=== PATIENT | female | born 1980 | race Caucasian/White ===

== ENCOUNTER 2020-04-18 11:47 | Emergency (ER) | payer MEDICARE ==
--- NOTE | 2020-04-18 12:11 | ERPHSYRPT ---
- History of Present Illness Time Seen by Provider: 04/18/20 12:10 Source: patient Exam Limitations: no limitations Physician History: This is a 39-year-old white female who is obese has a history of hypertension asthma and epilepsy. She does not recall the names of the medication she is taking but presents with a 2 to 3-day history of low back pain after a fall she sustained. Additionally, she complains of dental infection in the right lower molar and redness and swelling in her upper thigh where she injected methamphetamines. 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 Patient states that she is allergic to penicillin but can take cephalexin without any issues. Patient denies wanting any pain medicine for her back. She states she will use a patch from [id number]. Timing/Duration: day(s) (A few) Method of Injury: fall Quality: aching Back Pain Location: lumbar spine Severity of Pain-Max: mild Severity of Pain-Current: mild Associated Symptoms: lower back pain, muscle spasms, No fever, No chills, No nausea, No vomiting, No numbness in legs/feet, No weakness, No sensory/motor loss, No tingling in legs/feet Previous symptoms: no prior history Allergies/Adverse Reactions: Penicillins Allergy (Verified 04/18/20 12:16) Anaphylactic Reaction Travel Risk - International Travel Have you traveled outside of the country in past 3 weeks: No - Coronavirus Screening Are you exhibiting any of the following symptoms?: No Close contact with a COVID-19 positive Pt in past 14-21 Days: No - Review of Systems Constitutional: No Symptoms Eyes: No Symptoms Ears, Nose, & Throat: No Symptoms Respiratory: No Symptoms Cardiac: No Symptoms Abdominal/Gastrointestinal: No Symptoms Genitourinary Symptoms: No Symptoms Musculoskeletal: Back Pain Skin: No Symptoms Neurological: No Symptoms Psychological: No Symptoms Endocrine: No Symptoms Hematologic/Lymphatic: No Symptoms Immunological/Allergic: No Symptoms All Other Systems: Reviewed and Negative - Past Medical History Pertinent Past Medical History: Yes Neurological History: Seizures ENT History: No Pertinent History Cardiac History: Hypertension Respiratory History: No Pertinent History Endocrine Medical History: Diabetes Type I Musculoskeletal History: No Pertinent History GI Medical History: No Pertinent History History: No Pertinent History Psycho-Social History: No Pertinent History Female Reproductive Disorders: No Pertinent History - Past Surgical History Past Surgical History: Yes Neuro Surgical History: No Pertinent History Cardiac: No Pertinent History Respiratory: No Pertinent History Genitourinary: No Pertinent History Musculoskeletal: No Pertinent History - Nursing Vital Signs Nursing Vital Signs: Initial Vital Signs Temperature 98.7 F 04/18/20 12:07 Pulse Rate 98 H 04/18/20 12:07 Respiratory Rate 17 04/18/20 12:07 Blood Pressure 152/96 04/18/20 12:07 O2 Sat by Pulse Oximetry 99 04/18/20 12:07 Pain Scale Pain Intensity 8 - Physical Exam General Appearance: mild distress, alert, anxiety, obese Eye Exam: PERRL/EOMI Ears, Nose, Throat Exam: moist mucous membranes, other (Poor dentition) Neck Exam: normal inspection, non-tender, supple, full range of motion Respiratory Exam: normal breath sounds, chest tenderness, lungs clear, airway intact, No respiratory distress Cardiovascular Exam: regular rate/rhythm, normal heart sounds, normal peripheral pulses Gastrointestinal Exam: soft, normal bowel sounds, No tenderness Pelvic Exam: not done Rectal Exam: not done Back Exam: normal inspection, normal range of motion, No CVA tenderness, No vertebral tenderness Extremity Exam: normal inspection, normal range of motion, pelvis stable Neurologic Exam: alert, oriented x 3, cooperative, 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 No abscess present.) Lymphatic Exam: No adenopathy SpO2 Interpretation: normal O2 Delivery: Room Air Ordered Tests: Active Orders 24 hr Category Date Time Status LUMBAR LIMITED (2 OR 3 VIEWS) Stat Exams 04/18/20 12:27 Completed - Progress Progress: unchanged Progress Note: 04/18/20 13:09 Lumbar x-rays reveals no evidence of acute fracture or subluxation. Counseled pt/family regarding: diagnosis, need for follow-up, rad results - Departure Departure Disposition: Home Clinical Impression: Cellulitis, Dental infection Condition: Stable Critical Care Time: No Additional Instructions: Drink plenty of fluids. Take your medication as prescribed. Follow-up with your primary care physician for further management of your back pain and cellulitis. Follow-up with a dentist for further management of your dental infection. Take Tylenol and ibuprofen for your pain control Prescriptions: Cephalexin Mh 500 mg [Keflex 500 mg] 500 mg PO TID #21 capsule
--- NOTE | 2020-04-18 13:05 | XRAY ---
Indication: Pain following fall. Comparison: None 3 view lumbar spine demonstrates 6 lumbar segments in normal alignment with minimal/mild multilevel thoracolumbar endplate spurring, mild L1-L3/L6-L1 disc space narrowing, and cholecystectomy clips. No other bony, articular, or soft tissue abnormalities.
[2020-04-18 13:13] VITALS: BP 146/90; PULSE 88; O2SAT 98
== END 2020-04-18 13:21 | disposition home or self-care (01) ==
LOC: ED 11:47
DX: K12.2 Cellulitis and abscess of mouth (principal); K04.7 Periapical abscess without sinus
CPT/HCPCS: 72100; 99283

== ENCOUNTER 2020-05-16 17:56 | Emergency (ER) | payer MEDICARE ==
[2020-05-16] MEDS ORDERED: Hydromorphone 1 mg/ml Ampule IM ONE (18:43)
[2020-05-16] MEDS ORDERED: Hydromorphone 1 mg/ml Ampule ONE (19:04)
[2020-05-16 19:43] VITALS: O2SAT 99
--- NOTE | 2020-05-16 20:28 | ERPHSYRPT ---
- History of Present Illness Time Seen by Provider: 05/16/20 18:20 Source: patient Exam Limitations: no limitations Patient Subjective Stated Complaint: Pt states "I fell out of a truck 4 weeks ago and this pain started about a week ago. It starts in my right butt cheek a nd goes down to my foot." Triage Nursing Assessment: Pt presented alert and oriented X 3, skin pwd Pt ambulates with a limp holding her right buttuck. Pt in no apaprent respiratory distress. Physician History: Is a 39-year-old female who looks more than her stated age by decades presents with pain in the lower back going down the right leg she has a history of chronic back problems and according to inspect was at 1 time 1 extended periods of gabapentin and other opiates etc. However there is been on for almost a year her last prescription being in July 2019. Weeks ago she reports that she fell out of a truck window she had little difficulty at that time but this started 1 week ago. Timing/Duration: week(s) (1) Method of Injury: unknown Quality: sharp Back Pain Location: lumbar spine Back Pain Radiation: buttocks (Right), lower legs (Right) Severity of Pain-Max: severe Severity of Pain-Current: mild Modifying Factors: Improves With: nothing Associated Symptoms: lower back pain Previous symptoms: same symptoms as today Allergies/Adverse Reactions: Penicillins Allergy (Verified 04/18/20 12:16) Anaphylactic Reaction aspertane Allergy (Severe, Uncoded 05/16/20 18:23) Swelling Home Medications: Lisinopril 40 mg PO DAILY 05/16/20 [History] Tizanidine HCl [Zanaflex] 4 mg PO BID 05/16/20 [History] Hx Tetanus, Diphtheria Vaccination/Date Given: Yes Hx Influenza Vaccination/Date Given: No Hx Pneumococcal Vaccination/Date Given: Yes Immunizations Up to Date: Yes Travel Risk - International Travel Have you traveled outside of the country in past 3 weeks: No - Coronavirus Screening Are you exhibiting any of the following symptoms?: No Close contact with a COVID-19 positive Pt in past 14-21 Days: No - Review of Systems Constitutional: No Fever, No Chills Eyes: No Symptoms Ears, Nose, & Throat: No Symptoms Respiratory: No Cough, No Dyspnea Cardiac: No Chest Pain, No Edema, No Syncope Abdominal/Gastrointestinal: No Abdominal Pain, No Nausea, No Vomiting, No Diarrhea Genitourinary Symptoms: No Dysuria Musculoskeletal: Back Pain, No Neck Pain Skin: No Rash Neurological: No Dizziness, No Focal Weakness, No Sensory Changes Psychological: No Symptoms Endocrine: No Symptoms All Other Systems: Reviewed and Negative - Past Medical History Pertinent Past Medical History: Yes Neurological History: Seizures ENT History: No Pertinent History Cardiac History: Hypertension Respiratory History: No Pertinent History Endocrine Medical History: Diabetes Type I Musculoskeletal History: No Pertinent History GI Medical History: No Pertinent History History: No Pertinent History Psycho-Social History: No Pertinent History Female Reproductive Disorders: No Pertinent History - Past Surgical History Past Surgical History: Yes Neuro Surgical History: No Pertinent History Cardiac: No Pertinent History Respiratory: No Pertinent History Gastrointestinal: Other Genitourinary: No Pertinent History Musculoskeletal: No Pertinent History Female Surgical History: Section Other Surgical History: gastric bypass - Social History Smoking Status: Current every day smoker How long have you smoked: years Exposure to second hand smoke: Yes Drug Use: methamphetamines Patient Lives Alone: No - Female History Hx Last Menstrual Period: 04/21/2020 Hx Now: (unknown) - Nursing Vital Signs Nursing Vital Signs: Initial Vital Signs Temperature 99.0 F 05/16/20 18:15 Pulse Rate 78 05/16/20 18:15 Respiratory Rate 24 05/16/20 18:15 Blood Pressure 158/90 05/16/20 18:15 O2 Sat by Pulse Oximetry 100 05/16/20 18:15 Pain Scale Pain Intensity [Right 10 Generalized] Pain Intensity 5 - Physical Exam General Appearance: moderate distress, alert Eye Exam: PERRL/EOMI, eyes nml inspection Neck Exam: normal inspection, non-tender, supple, full range of motion, No meningismus, No midline tenderness Respiratory Exam: normal breath sounds, lungs clear, No respiratory distress Cardiovascular Exam: regular rate/rhythm, normal heart sounds Gastrointestinal Exam: soft, No tenderness, No mass Back Exam: vertebral tenderness, decreased range of motion, other (Right leg raising positive on right) Extremity Exam: normal inspection, normal range of motion, No calf tenderness, No pedal edema Neurologic Exam: alert, oriented x 3, cooperative, 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 nml as tested, normal mood/affect, nml station & gait, sensation nml, No motor deficits Skin Exam: normal color, warm, dry, No rash SpO2 Interpretation: normal SpO2: 99 O2 Delivery: Room Air - Course Nursing assessment & vital signs reviewed: Yes - CT Exams Lumbar Spine CT Interpretation: Other (CT of the lumbar spine shows stable chronic multilevel degenerative disease disease compared to March no acute findings) Ordered Tests: Active Orders 24 hr Category Date Time Status LUMBAR SPINE W/O [CT] Stat Exams 05/16/20 18:43 Taken Medication Summary Discontinued Medications Generic Name Dose Route Start Last Admin Trade Name Freq PRN Reason Stop Dose Admin Hydromorphone HCl 1 mg 05/16/20 18:43 05/16/20 19:05 Hydromorphone 1 Mg/Ml Ampule IM 05/16/20 18:44 1 mg STAT ONE Administration Hydromorphone HCl Confirm 05/16/20 19:04 Hydromorphone 1 Mg/Ml Ampule Administered 05/16/20 19:05 Dose 1 mg .ROUTE .STK-MED ONE - Progress Progress: unchanged - Departure Departure Disposition: Home Clinical Impression: Sciatica associated with disorder of lumbar spine Condition: Stable Critical Care Time: No Referrals: DOCTOR,NO FAMILY [Primary Care Provider] - Instructions: Chronic Pain (DC) Prescriptions: Hydrocodone/APAP 5-325 Tab^^^ [[place] 5-325 Tablet^^^] 1 tab PO Q6HPRN PRN #10 tablet MDD 6 PRN Reason: Pain Gabapentin 300 mg PO BID 10 Days #20 capsule
[2020-05-16 20:48] VITALS: BP 135/82; PULSE 66
--- NOTE | 2020-05-17 08:42 | XRAY ---
Indication: Low back pain radiating right leg 1 week. Status post fall 4 weeks ago. Multiple contiguous axial images obtained through the lumbar spine. Sagittal and coronal reformatted images obtained. Comparison: Lumbar radiograph April 18, 2020. Axial images negative for acute fracture, suspicious bony lesions, or spinal canal stenosis. There remains mild multilevel degenerative disc disease including endplate spurring and thickened disc phenomena. Facets are symmetric again with mild degenerative facet arthropathy at the lumbosacral junction. Sagittal and coronal reformatted images demonstrates normal lumbar alignment with minimal multilevel disc space narrowing. No acute compression fracture or subluxation. Visualized noncontrasted soft tissues again demonstrates cholecystectomy and gastric bypass surgery. Incidental nonobstructing punctate left renal calculus. Impression: 1. Continued negative for acute fracture/subluxation. 2. Stable multilevel degenerative changes.
== END 2020-05-16 20:48 | disposition home or self-care (01) ==
LOC: ED 17:56
DX: M54.30 Sciatica, unspecified side (principal); M53.86 Other specified dorsopathies, lumbar region
CPT/HCPCS: 72131; 96372; 99284; J1170

== ENCOUNTER 2020-07-27 11:21 | Emergency (ER) | payer MEDICARE ==
[2020-07-27 11:32] VITALS: PULSE 64; O2SAT 100
[2020-07-27] MEDS ORDERED: TORAdol 30 mg Injection IM ONE (11:41)
[2020-07-27] MEDS ORDERED: TORAdol 30 mg Injection ONE (11:43)
--- NOTE | 2020-07-27 12:10 | XRAY ---
Indication: Pain following fall. Comparison: None AP pelvis and 2 view right hip demonstrates left midabdomen suture material. No other bony, articular, or soft tissue abnormalities.
--- NOTE | 2020-07-27 12:12 | ERPHSYRPT ---
- History of Present Illness Time Seen by Provider: 07/27/20 11:28 Historian: patient Patient Subjective Stated Complaint: Pt states "I fell on my butt four days ago and yesterday my right leg started to hurt from my butt cheek down to my right foot." Triage Nursing Assessment: Pt presented alert and oriented X 3, skin pwd PT ambulates with a limp. Pt able to speak in clear full sentences pt CSM X 4 Physician History: Pt states "I fell on my butt four days ago and yesterday my right leg started to hurt from my butt cheek down to my right foot." Timing/Duration: day(s) (4) Activities at Onset: activity (Walking) Quality: sharpness Abdominal Pain Onset Location: other (Right Post Hip and RLE) Pain Radiation: other (RLE) Severity of Pain-Max: severe Severity of Pain-Current: severe Modifying Factors: Improves With: lying down, movement, position Associated Symptoms: No back, No chest pain, No diaphoresis, No diarrhea, No fever/chills, No fatigue Previous symptoms: same symptoms as today Allergies/Adverse Reactions: Penicillins Allergy (Verified 04/18/20 12:16) Anaphylactic Reaction aspertane Allergy (Severe, Uncoded 05/16/20 18:23) Swelling Home Medications: Lisinopril 40 mg PO DAILY 05/16/20 [History] Hx Tetanus, Diphtheria Vaccination/Date Given: Yes Hx Influenza Vaccination/Date Given: Yes Hx Pneumococcal Vaccination/Date Given: Yes Immunizations Up to Date: Yes Travel Risk - International Travel Have you traveled outside of the country in past 3 weeks: No - Coronavirus Screening Are you exhibiting any of the following symptoms?: No Close contact with a COVID-19 positive Pt in past 14-21 Days: No - Review of Systems Constitutional: No Fever, No Chills Eyes: No Symptoms Ears, Nose, & Throat: No Symptoms Respiratory: No Cough, No Dyspnea Cardiac: No Chest Pain, No Edema, No Syncope Abdominal/Gastrointestinal: No Abdominal Pain, No Nausea, No Vomiting, No Diarrhea Genitourinary Symptoms: No Dysuria Musculoskeletal: Other (Right hip pain right lower extremity: Pain, painful range of motion), No Back Pain, No Neck Pain Skin: No Rash Neurological: No Dizziness, No Focal Weakness, No Sensory Changes Psychological: No Symptoms Endocrine: No Symptoms All Other Systems: Reviewed and Negative - Past Medical History Pertinent Past Medical History: Yes Neurological History: Seizures ENT History: No Pertinent History Cardiac History: Hypertension Respiratory History: No Pertinent History Endocrine Medical History: Diabetes Type I Musculoskeletal History: No Pertinent History GI Medical History: No Pertinent History History: No Pertinent History Psycho-Social History: No Pertinent History Female Reproductive Disorders: No Pertinent History - Past Surgical History Past Surgical History: Yes Neuro Surgical History: No Pertinent History Cardiac: No Pertinent History Respiratory: No Pertinent History Gastrointestinal: Other Genitourinary: No Pertinent History Musculoskeletal: No Pertinent History Female Surgical History: Section Other Surgical History: gastric bypass - Social History Smoking Status: Current every day smoker How long have you smoked: years Exposure to second hand smoke: Yes Drug Use: methamphetamines Patient Lives Alone: No - Female History Hx Last Menstrual Period: 07/17/2020 Hx Now: No - Nursing Vital Signs Nursing Vital Signs: Initial Vital Signs Temperature 98.1 F 07/27/20 11:26 Pulse Rate 64 07/27/20 11:26 Respiratory Rate 20 07/27/20 11:26 Blood Pressure 124/66 07/27/20 11:26 O2 Sat by Pulse Oximetry 100 07/27/20 11:26 Pain Scale Pain Intensity 10 - Physical Exam General Appearance: no apparent distress, alert, other (Examined in presence of female cna) Eye Exam: PERRL/EOMI, eyes nml inspection Ears, Nose, Throat Exam: normal ENT inspection, pharynx normal, moist mucous membranes Neck Exam: normal inspection, non-tender, supple, full range of motion Respiratory Exam: normal breath sounds, lungs clear, No respiratory distress Cardiovascular Exam: regular rate/rhythm, normal heart sounds Gastrointestinal/Abdomen Exam: soft, No tenderness, No mass Back Exam: normal inspection, normal range of motion, No CVA tenderness, No vertebral tenderness Extremity Exam: normal inspection, normal range of motion, pelvis stable, other (Right hip pain right lower extremity: Pain, painful range of motion, distal neurovascular function) Neurologic Exam: alert, oriented x 3, cooperative, normal mood/affect, nml cerebellar function, sensation nml, No motor deficits Skin Exam: normal color, warm, dry SpO2: 100 - Course Nursing assessment & vital signs reviewed: Yes - Radiology Exams Pelvis X-ray Interpretation: No Fracture Ordered Tests: Active Orders 24 hr Category Date Time Status HIP UNI (2V) INCL PEL IF DONE Stat Exams 07/27/20 11:59 Completed Medication Summary Discontinued Medications Generic Name Dose Route Start Last Admin Trade Name Rocaelq PRN Reason Stop Dose Admin Ketorolac Tromethamine 30 mg 07/27/20 11:41 07/27/20 11:44 Toradol 30 Mg Injection IM 07/27/20 11:42 30 mg STAT ONE Administration Ketorolac Tromethamine Confirm 07/27/20 11:43 Toradol 30 Mg Injection Administered 07/27/20 11:44 Dose 30 mg .ROUTE .STK-MED ONE - Progress Progress: unchanged, improved Progress Note: 07/27/20 12:22 Nothing acute on the right hip x-ray. I advised patient to see her regular doctor for follow-up. Patient has been to the ER in the past for fall Counseled pt/family regarding: lab results, need for follow-up - Departure Departure Disposition: Home Clinical Impression: Sciatica associated with disorder of lumbar spine Contusion of hip, right Qualifiers: Encounter type: initial encounter Qualified Code(s): S70.01XA - Contusion of right hip, initial encounter Condition: Stable Critical Care Time: No Referrals: SELVIN LOPEZ, [Primary Care Provider] - Follow Up with PCP/3 days Instructions: Contusion (DC) Prescriptions: Indomethacin 25 mg [Indocin 25 MG] 25 mg PO BID PRN #8 capsule PRN Reason: Pain
[2020-07-27 12:34] VITALS: BP 109/69
== END 2020-07-27 12:52 | disposition home or self-care (01) ==
LOC: ED 11:21
DX: M54.41 Lumbago with sciatica, right side (principal); M25.551 Pain in right hip; I10 Essential (primary) hypertension; E10.9 Type 1 diabetes mellitus without complications; Z79.899 Other long term (current) drug therapy
CPT/HCPCS: 73502; 96372; 99284; J1885

== ENCOUNTER 2020-07-29 17:01 | Emergency (ER) | payer MEDICARE ==
--- NOTE | 2020-07-29 17:20 | ERPHSYRPT ---
- History of Present Illness Source: patient Patient Subjective Stated Complaint: pt here for pain to right buttock down ri ght leg, pain worse after a fall 5 days ago out of her bed, Triage Nursing Assessment: pt alert, arrived per ambulance, able to move self over but crying, states has to use cane to walk, skin w/d/p,has bruise to left side of buttock Physician History: 39 yo female w R buttock pain radiating down her RLE x 5 days. Pt was seen in the ER 2 days ago for same complaint. She states that she fell out of her bed 5 days ago and also injured her back earlier in the Summer. Pain is 10 on scale and movement makes it better. She denies dysuria/hematuria/incontinence of bowel-bladder/distal paralysis or decrease in sensation. Timing/Duration: other (5 days/chronic) Method of Injury: fall Quality: sharp Back Pain Location: lumbar spine Back Pain Radiation: buttocks, lower legs Severity of Pain-Max: severe Severity of Pain-Current: severe Associated Symptoms: lower back pain, No fever, No chills, No sweating, No urinary incontinence, No loss of bowel control, No constipation, No nausea, No vomiting, No problems urinating, No light-headedness, No dizziness, No numbness in legs/feet, No weakness, No sensory/motor loss, No tingling in legs/feet, No muscle spasms Previous symptoms: same symptoms as today Allergies/Adverse Reactions: Penicillins Allergy (Verified 07/29/20 17:13) Anaphylactic Reaction aspertane Allergy (Severe, Uncoded 07/29/20 17:13) Swelling Home Medications: Lisinopril 40 mg PO DAILY 05/16/20 [History] Hx Tetanus, Diphtheria Vaccination/Date Given: Yes Hx Influenza Vaccination/Date Given: No Hx Pneumococcal Vaccination/Date Given: Yes Immunizations Up to Date: Yes Travel Risk - International Travel Have you traveled outside of the country in past 3 weeks: No - Coronavirus Screening Are you exhibiting any of the following symptoms?: No Close contact with a COVID-19 positive Pt in past 14-21 Days: No - Review of Systems Constitutional: No Symptoms Eyes: No Symptoms Ears, Nose, & Throat: No Symptoms Respiratory: No Symptoms Cardiac: No Symptoms Abdominal/Gastrointestinal: No Symptoms Genitourinary Symptoms: No Symptoms Musculoskeletal: No Symptoms Skin: No Symptoms Neurological: No Dizziness, No Focal Weakness, No Gait Changes, No Headache, No Irritability, No Lethargy, No Paralysis, No Parasthesia, No Seizure, No Sensory Changes, No Speech Changes, No Tics, No Tremors, No Vertigo Psychological: No Symptoms Endocrine: No Symptoms Hematologic/Lymphatic: No Symptoms Immunological/Allergic: No Symptoms - Past Medical History Pertinent Past Medical History: Yes Neurological History: Seizures ENT History: No Pertinent History Cardiac History: Hypertension Respiratory History: No Pertinent History Endocrine Medical History: Diabetes Type I Musculoskeletal History: No Pertinent History GI Medical History: No Pertinent History History: No Pertinent History Psycho-Social History: No Pertinent History Female Reproductive Disorders: No Pertinent History - Past Surgical History Past Surgical History: Yes Neuro Surgical History: No Pertinent History Cardiac: No Pertinent History Respiratory: No Pertinent History Gastrointestinal: Other Genitourinary: No Pertinent History Musculoskeletal: No Pertinent History Female Surgical History: Section Other Surgical History: gastric bypass - Social History Smoking Status: Current every day smoker How long have you smoked: years Exposure to second hand smoke: Yes Drug Use: methamphetamines Patient Lives Alone: No Significant Family History: no pertinent family hx - Female History Hx Last Menstrual Period: jun Hx Now: No - Nursing Vital Signs Nursing Vital Signs: Initial Vital Signs Temperature 98.4 F 07/29/20 17:02 Pulse Rate 74 07/29/20 17:02 Respiratory Rate 22 07/29/20 17:02 Blood Pressure 132/84 07/29/20 17:02 O2 Sat by Pulse Oximetry 98 07/29/20 17:02 Pain Scale Pain Intensity [] 10 Pain Intensity 10 - Physical Exam General Appearance: no apparent distress Eye Exam: PERRL/EOMI, eyes nml inspection Ears, Nose, Throat Exam: normal ENT inspection, TMs normal, pharynx normal Neck Exam: normal inspection, non-tender, supple, full range of motion, No meningismus, No mass, No Brudzinski, No Kernig's, No carotid bruit Respiratory Exam: normal breath sounds, lungs clear, airway intact, No respiratory distress Cardiovascular Exam: regular rate/rhythm, normal heart sounds, normal peripheral pulses, No murmur Gastrointestinal Exam: soft, normal bowel sounds, No tenderness Pelvic Exam: not done Back Exam: other (TTP R buttock) Extremity Exam: normal inspection, normal range of motion Peripheral Pulses: carotid (R): 2+, carotid (L): 2+ Neurologic Exam: alert, oriented x 3, cooperative, 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 II-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 nml as tested, normal mood/affect, sensation nml, No motor deficits, No sensory deficit Skin Exam: normal color, warm, dry Lymphatic Exam: No adenopathy SpO2: 98 O2 Delivery: Room Air - Course Nursing assessment & vital signs reviewed: Yes - CT Exams Pelvis CT Interpretation: Discussed w/radiologist (Possible sublux distal coccyx) Ordered Tests: Active Orders 24 hr Category Date Time Status PELVIS WITHOUT CONTRAST [CT] Stat Exams 07/29/20 17:14 Completed Medication Summary Discontinued Medications Generic Name Dose Route Start Last Admin Trade Name Freq PRN Reason Stop Dose Admin Ketorolac Tromethamine 60 mg 07/29/20 18:17 07/29/20 18:22 Toradol 30 Mg Injection IM 07/29/20 18:18 60 mg STAT ONE Administration Ketorolac Tromethamine Confirm 07/29/20 18:19 Toradol 30 Mg Injection Administered 07/29/20 18:20 Dose 60 mg .ROUTE .STK-MED ONE Orphenadrine Citrate 60 mg 07/29/20 18:17 07/29/20 18:22 Norflex 60 Mg/2 Ml IM 07/29/20 18:18 60 mg STAT ONE Administration Orphenadrine Citrate Confirm 07/29/20 18:19 Norflex 60 Mg/2 Ml Administered 07/29/20 18:20 Dose 60 mg .ROUTE .STK-MED ONE - Progress Progress Note: 07/29/20 17:34 Inspect-Weekly Norco10 07/29/20 18:18 60mg IM toradol/60mg IM norflex Counseled pt/family regarding: diagnosis, need for follow-up, rad results - Departure Departure Disposition: Home Clinical Impression: Coccygeal fracture Condition: Stable Critical Care Time: No Referrals: SELVIN LOPEZ DO [Primary Care Provider] - Instructions: Coccyx Fracture (DC) Additional Instructions: Doughnut pillow Stool softeners Toradol/Norflex as needed for pain/Do not take Indocin if taking Toradol Follow up with your family Prescriptions: Orphenadrine Citrate 100 mg [Norflex 100 MG Tablet] 100 mg PO BID PRN PRN #12 tab PRN Reason: Pain Ketorolac Tromethamine [Toradol] 10 mg PO TID PRN PRN #12 tablet PRN Reason: Pain
[2020-07-29] MEDS ORDERED: TORAdol 30 mg Injection IM ONE (18:17)
[2020-07-29] MEDS ORDERED: Norflex 60 MG/2 ML IM ONE (18:17)
[2020-07-29] MEDS ORDERED: TORAdol 30 mg Injection ONE (18:19)
[2020-07-29] MEDS ORDERED: Norflex 60 MG/2 ML ONE (18:19)
[2020-07-29 18:57] VITALS: BP 119/61; PULSE 64
--- NOTE | 2020-07-29 21:29 | XRAY ---
Indication: Right buttock/right hip pain following fall 5 days ago. Multiple contiguous axial images obtained through the pelvis with special attention to the osseous structures. Two-dimensional sagittal and coronal reformatted images obtained. Comparison: None No acute fracture, dislocation, or suspicious bone lesions. Mild lumbosacral junction degenerative vacuum disc phenomena and disc space narrowing. Remaining visualized noncontrasted soft tissues are unremarkable. Impression: Negative acute fracture/dislocation. Incidental lumbosacral junction degenerative changes. Comment: Preliminary interpretation was made by [facility]. No critical discrepancy.
[2020-07-29 21:58] VITALS: O2SAT 98
== END 2020-07-29 19:32 | disposition home or self-care (01) ==
LOC: ED 17:01
DX: S32.2XXA Fracture of coccyx, initial encounter for closed fracture (principal); I10 Essential (primary) hypertension; Z79.899 Other long term (current) drug therapy
CPT/HCPCS: 72192; 96372; 99284; J1885; J2360

== ENCOUNTER 2020-09-30 12:37 | Emergency (ER) | payer MEDICARE ==
[2020-09-30] MEDS ORDERED: Sodium Chloride 0.9% 1000 ML 1,000 ML IV STA (12:54)
[2020-09-30 13:01] VITALS: O2SAT 100
[2020-09-30] MEDS ORDERED: Sodium Chloride 0.9% 1000 ML 1,000 ML ONE (13:43)
[2020-09-30 14:22] LABS: Absolute Neutrophil Ct (ANC) 3.92 (1.4-6.9); BASOPHIL % 0.4 % (0.0-0.4); Basophil (Absolute #) 0.03 (0-0.4); Eosinophil % 3.2 % (0.00-5.0); Eosinophil (Absolute #) 0.22 (0-0.5); Hematocrit 41.7 % (35-47); Hemoglobin 13.7 gm/dl (12.0-16.0); Lymphocyte (Absolute #) 2.01 (1.0-4.6); Lymphocytes % 29.2 % (24.0-44.0); Mean Cell Volume 98.6 fl (78-100); Mean Corpuscular Hemoglobin 32.4 pg (26-32); Mean Corpuscular Hgb Concent. 32.9 g/dl (32-36); Mean Platelet Volume 10.8 fl (7.5-11.0); Monocytes % 10.2 % (0.0-12.0); Platelet Count 197 K/mm3 (150-450); Red Blood Count 4.23 M/mm3 (4.1-5.4); Red Cell Distribution Width 12.4 % (11.5-14.0); White Blood Count 6.9 K/mm3 (4.0-10.5)
[2020-09-30 14:28] LABS: Appearance CLOUDY (CLEAR); Bacteria MODERATE /HPF (NEGATIVE); Bilirubin NEGATIVE (NEGATIVE); Blood MODERATE Ery/ul (0-5); Epithelial Cells MANY /HPF (FEW); Glucose NEGATIVE (NEGATIVE); Ketones TRACE (NEGATIVE); Leukocyte Esterase MODERATE (NEGATIVE); Mucus MANY /HPF (NEGATIVE); Nitrite POSITIVE (NEGATIVE); Protein,Urine Dip 100 (Negative); RBC 51-100 /HPF (0-2); Specific Gravity 1.036 (1.005-1.025); Urobilinogen NEGATIVE mg/dL (0-1); WBC 51-100 /HPF (0-5)
[2020-09-30 14:32] LABS: ACETAMINOPHEN < 10 ug/ml (10-30); ALBUMIN 3.8 g/dL (3.5-5.0); ALKALINE PHOSPHATASE 54 U/L (38-126); ANION GAP 8.8 MEQ/L (5-15); BLOOD UREA NITROGEN 17 mg/dL (7-17); CHLORIDE 104 mmol/L (98-107); Carbon Dioxide 27 mmol/L (22-30); Creatinine 1 0.59 mg/dL (0.52-1.04); EST GLOMERULAR FILTRATION RATE > 60.0 ML/MIN; ETHYL ALCOHOL < 10 mg/dL (0-10); Glucose 115 mg/dL (74-106); Potassium 3.3 mmol/L (3.5-5.1); SALICYLATE < 1.0 mg/dL (2-20); SGOT/AST 19 U/L (14-36); SGPT/ALT 15 U/L (0-35); SODIUM 136 mmol/L (137-145); Total Protein 6.8 g/dL (6.3-8.2)
[2020-09-30 14:40] LABS: Barbiturate,Urine NEGATIVE (NEGATIVE); Benzodiazepine,Urine NEGATIVE (NEGATIVE); Cocaine,Urine NEGATIVE (NEGATIVE); Methadone,Urine NEGATIVE (NEGATIVE); Opiate,Urine POSITIVE (NEGATIVE); PCP,Urine NEGATIVE (NEGATIVE); THC,Urine NEGATIVE (NEGATIVE)
[2020-09-30 16:08] LABS: Amphetamine,Urine POSITIVE (NEGATIVE)
--- NOTE | 2020-09-30 16:50 | ERPHSYRPT ---
- History of Present Illness Source: patient Exam Limitations: clinical condition, intoxication Patient Subjective Stated Complaint: "Took 20 norco 10mg pills and drank a liter of fireball to "kill the pain". Denies suicide attempt, states she "didn't want to feel for awhile." Triage Nursing Assessment: Patient present to ED by ambulance and law enforcement for intentional overdose. Law enforcement and EMS report pt drank 1 liter of fireball and took twenty 10mg [place] pills just prior to arrival. Patient reports she miscarried twins 8 days ago and that her left her last night. States this wasn't an attempt to kill herself, she just wanted to "not feel the pain anymore." Patient is alert, answers questions, is tearful, anxious. Patient is slurring words. Law enforcement placing ID order on patient. Blood pressure and HR stable. Skin PWD. Timing/Duration: today Severity of Symptoms-Max: severe Severity of Symptoms-Current: severe Context related to: spouse, other (Miscarriage) Suicidal thoughts: attempt Associated Symptoms: angry, agitated, depressed, frustrated, hostile Hx Tetanus, Diphtheria Vaccination/Date Given: Yes Hx Influenza Vaccination/Date Given: No Hx Pneumococcal Vaccination/Date Given: Yes <SY LUCIANO - Last Filed: 09/30/20 19:15> <HANH GIRON - Last Filed: 09/30/20 20:33> - History of Present Illness Time Seen by Provider: 09/30/20 13:05 Physician History: 40-year-old white female brought in by the [place] [facility] after she reportedly took 20 [place] tablets drank a liter of fire ball and is depressed and upset because her has left her in the last few days. She also reports that she had a miscarriage of twins in the last few days. (SY LUCIANO) Allergies/Adverse Reactions: Penicillins Allergy (Verified 09/30/20 13:01) Anaphylactic Reaction aspertane Allergy (Severe, Uncoded 09/30/20 13:01) Swelling Home Medications: Lisinopril 40 mg PO DAILY 05/16/20 [History] Hydrocodone/Acetaminophen [Hydrocodone-Acetamin 10-325 mg] 10 mg PO Q6HPRN PRN 09/30/20 [History] Travel Risk - International Travel Have you traveled outside of the country in past 3 weeks: No - Coronavirus Screening Are you exhibiting any of the following symptoms?: No Close contact with a COVID-19 positive Pt in past 14-21 Days: No <SY LUCIANO Filed: 09/30/20 19:15> - Past Medical History Pertinent Past Medical History: Yes Neurological History: Seizures ENT History: No Pertinent History Cardiac History: Hypertension Respiratory History: No Pertinent History Endocrine Medical History: Diabetes Type I Musculoskeletal History: No Pertinent History GI Medical History: No Pertinent History History: No Pertinent History Psycho-Social History: No Pertinent History Female Reproductive Disorders: No Pertinent History - Past Surgical History Past Surgical History: Yes Neuro Surgical History: No Pertinent History Cardiac: No Pertinent History Respiratory: No Pertinent History Gastrointestinal: Other Genitourinary: No Pertinent History Musculoskeletal: No Pertinent History Female Surgical History: Section Other Surgical History: gastric bypass - Social History Smoking Status: Current every day smoker How long have you smoked: years Exposure to second hand smoke: Yes Drug Use: none Patient Lives Alone: No Significant Family History: no pertinent family hx - Female History Hx Now: No (miscarriage 8 days ago) <SY LUCIANO Last Filed: 09/30/20 19:15> - Review of Systems Constitutional: No Fever, No Chills Eyes: No Symptoms Ears, Nose, & Throat: No Symptoms Respiratory: No Cough, No Dyspnea Cardiac: No Chest Pain, No Edema, No Syncope Abdominal/Gastrointestinal: No Abdominal Pain, No Nausea, No Vomiting, No Diarrhea Genitourinary Symptoms: No Dysuria Musculoskeletal: No Back Pain, No Neck Pain Skin: No Rash Neurological: No Dizziness, No Focal Weakness, No Sensory Changes Psychological: Alcohol Abuse, Drug Abuse, Anxiety, Depression, Suicidal Ideations Endocrine: No Symptoms All Other Systems: Reviewed and Negative <SY LUCIANO Filed: 09/30/20 19:15> - Physical Exam General Appearance: moderate distress Eyes, Ears, Nose, Throat Exam: normal ENT inspection, moist mucous membranes Neck Exam: normal inspection, non-tender, supple Respiratory Exam: normal breath sounds, lungs clear, No respiratory distress Cardiovascular Exam: regular rate/rhythm, No edema Gastrointestinal/Abdominal Exam: soft, No tenderness, No distention Extremities Exam: normal inspection, normal range of motion, No evidence of injury, No edema Current Suicidality: denies suicide plan Neurological Exam: 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, 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 as tested, oriented x 3, agitated, anxious, depressed affect Appearance: disheveled, impaired insight Behavior/Eye Contact/Speech: increased rate of speech, belligerent, uncooperative, agitated, intoxicated appearance Skin Exam: normal color, warm, dry, No rash SpO2 Interpretation: normal SpO2: 100 <SY LUCIANO - Last Filed: 09/30/20 19:15> - Nursing Vital Signs Nursing Vital Signs: Initial Vital Signs Temperature 98.2 F 09/30/20 12:39 Pulse Rate 84 09/30/20 12:39 Respiratory Rate 18 09/30/20 12:39 Blood Pressure 153/95 09/30/20 12:39 O2 Sat by Pulse Oximetry 100 09/30/20 12:39 Pain Scale Pain Intensity 0 - Course Nursing assessment & vital signs reviewed: Yes <SY LUCIANO - Last Filed: 09/30/20 19:15> Ordered Tests: Active Orders 24 hr Category Date Time Status EKG-ER Only STAT Care 09/30/20 12:54 Active ACETAMINOPHEN Stat Lab 09/30/20 14:11 Completed ACETAMINOPHEN Stat Lab 09/30/20 15:40 Completed CBC W DIFF Stat Lab 09/30/20 14:11 Completed CMP Stat Lab 09/30/20 14:11 Completed CULTURE,URINE Stat Lab 09/30/20 14:14 Received ETHYL ALCOHOL Stat Lab 09/30/20 14:11 Completed HCG QUALITATIVE,SERUM Stat Lab 09/30/20 14:11 Completed SALICYLATE Stat Lab 09/30/20 14:11 Completed UA W/RFX UR CULTURE Stat Lab 09/30/20 14:14 Completed Urine Triage Profile Stat Lab 09/30/20 14:14 Completed Medication Summary Discontinued Medications Generic Name Dose Route Start Last Admin Trade Name Clive PRN Reason Stop Dose Admin Sodium Chloride 1,000 mls @ 999 mls/hr 09/30/20 12:54 09/30/20 15:55 Sodium Chloride 0.9% 1000 Ml IV 09/30/20 13:54 Infused .Q1H1M STA Infusion Sodium Chloride Confirm 09/30/20 13:43 Sodium Chloride 0.9% 1000 Ml Administered 09/30/20 13:44 Dose 1,000 mls @ ud .ROUTE .STK-MED ONE Lab/Rad Data: Laboratory Result Diagrams 09/30/20 14:11 09/30/20 14:11 Laboratory Results 09/30/20 09/30/20 09/30/20 Range/Units 15:40 14:14 14:14 WBC (4.0-10.5) K/mm3 RBC (4.1-5.4) M/mm3 Hgb (12.0-16.0) gm/dl Hct (35-47) % MCV (78-100) fl MCH (26-32) pg MCHC (32-36) g/dl RDW (11.5-14.0) % Plt Count (150-450) K/mm3 MPV (7.5-11.0) fl Gran % (36.0-66.0) % Eos # (Auto) (0-0.5) Absolute Lymphs (auto) (1.0-4.6) Absolute Monos (auto) (0.0-1.3) Lymphocytes % (24.0-44.0) % Monocytes % (0.0-12.0) % Eosinophils % (0.00-5.0) % Basophils % (0.0-0.4) % Absolute Granulocytes (1.4-6.9) Basophils # (0-0.4) Sodium (137-145) mmol/L Potassium (3.5-5.1) mmol/L Chloride (98-107) mmol/L Carbon Dioxide (22-30) mmol/L Anion Gap (5-15) MEQ/L BUN (7-17) mg/dL Creatinine (0.52-1.04) mg/dL Estimated GFR ML/MIN Glucose (74-106) mg/dL Calcium (8.4-10.2) mg/dL Total Bilirubin (0.2-1.3) mg/dL AST (14-36) U/L ALT (0-35) U/L Alkaline Phosphatase (38-126) U/L Serum Total Protein (6.3-8.2) g/dL Albumin (3.5-5.0) g/dL Serum , Qual (Negative) Urine Color JOHN (YELLOW) Urine Appearance CLOUDY (CLEAR) Urine pH 5.0 (5-6) Ur Specific Porum 1.036 (1.005-1.025) Urine Protein 100 (Negative) Urine Ketones TRACE (NEGATIVE) Urine Blood MODERATE (0-5) Hernan/ul Urine Nitrite POSITIVE (NEGATIVE) Urine Bilirubin NEGATIVE (NEGATIVE) Urine Urobilinogen NEGATIVE (0-1) mg/dL Ur Leukocyte Esterase MODERATE (NEGATIVE) Urine WBC (Auto) 51-100 (0-5) /HPF Urine RBC (Auto) 51-100 (0-2) /HPF U Epithel Cells (Auto) MANY (FEW) /HPF Urine Bacteria (Auto) MODERATE (NEGATIVE) /HPF Urine Mucus (Auto) MANY (NEGATIVE) /HPF Urine Culture Reflexed YES (NO) Urine Glucose NEGATIVE (NEGATIVE) mg/dL Salicylates (2-20) mg/dL Urine Opiates Level POSITIVE (NEGATIVE) Ur Methadone NEGATIVE (NEGATIVE) Acetaminophen < 10 L (10-30) ug/ml Urine Barbiturates NEGATIVE (NEGATIVE) Ur Phencyclidine (PCP) NEGATIVE (NEGATIVE) Urine Amphetamine POSITIVE (NEGATIVE) U Benzodiazepine Level NEGATIVE (NEGATIVE) Urine Cocaine NEGATIVE (NEGATIVE) Urine Marijuana (THC) NEGATIVE (NEGATIVE) Ethyl Alcohol (0-10) mg/dL 09/30/20 09/30/20 09/30/20 Range/Units 14:11 14:11 14:11 WBC 6.9 (4.0-10.5) K/mm3 RBC 4.23 (4.1-5.4) M/mm3 Hgb 13.7 (12.0-16.0) gm/dl Hct 41.7 (35-47) % MCV 98.6 (78-100) fl MCH 32.4 H (26-32) pg MCHC 32.9 (32-36) g/dl RDW 12.4 (11.5-14.0) % Plt Count 197 (150-450) K/mm3 MPV 10.8 (7.5-11.0) fl Gran % 57.0 (36.0-66.0) % Eos # (Auto) 0.22 (0-0.5) Absolute Lymphs (auto) 2.01 (1.0-4.6) Absolute Monos (auto) 0.70 (0.0-1.3) Lymphocytes % 29.2 (24.0-44.0) % Monocytes % 10.2 (0.0-12.0) % Eosinophils % 3.2 (0.00-5.0) % Basophils % 0.4 (0.0-0.4) % Absolute Granulocytes 3.92 (1.4-6.9) Basophils # 0.03 (0-0.4) Sodium 136 L (137-145) mmol/L Potassium 3.3 L (3.5-5.1) mmol/L Chloride 104 (98-107) mmol/L Carbon Dioxide 27 (22-30) mmol/L Anion Gap 8.8 (5-15) MEQ/L BUN 17 (7-17) mg/dL Creatinine 0.59 (0.52-1.04) mg/dL Estimated GFR > 60.0 ML/MIN Glucose 115 H (74-106) mg/dL Calcium 9.0 (8.4-10.2) mg/dL Total Bilirubin 0.60 (0.2-1.3) mg/dL AST 19 (14-36) U/L ALT 15 (0-35) U/L Alkaline Phosphatase 54 (38-126) U/L Serum Total Protein 6.8 (6.3-8.2) g/dL Albumin 3.8 (3.5-5.0) g/dL Serum , Qual NEGATIVE (Negative) Urine Color (YELLOW) Urine Appearance (CLEAR) Urine pH (5-6) Ur Specific Porum (1.005-1.025) Urine Protein (Negative) Urine Ketones (NEGATIVE) Urine Blood (0-5) Hernan/ul Urine Nitrite (NEGATIVE) Urine Bilirubin (NEGATIVE) Urine Urobilinogen (0-1) mg/dL Ur Leukocyte Esterase (NEGATIVE) Urine WBC (Auto) (0-5) /HPF Urine RBC (Auto) (0-2) /HPF U Epithel Cells (Auto) (FEW) /HPF Urine Bacteria (Auto) (NEGATIVE) /HPF Urine Mucus (Auto) (NEGATIVE) /HPF Urine Culture Reflexed (NO) Urine Glucose (NEGATIVE) mg/dL Salicylates < 1.0 L (2-20) mg/dL Urine Opiates Level (NEGATIVE) Ur Methadone (NEGATIVE) Acetaminophen < 10 L (10-30) ug/ml Urine Barbiturates (NEGATIVE) Ur Phencyclidine (PCP) (NEGATIVE) Urine Amphetamine (NEGATIVE) U Benzodiazepine Level (NEGATIVE) Urine Cocaine (NEGATIVE) Urine Marijuana (THC) (NEGATIVE) Ethyl Alcohol < 10 (0-10) mg/dL - Progress Progress: unchanged <SY LUCIANO - Last Filed: 09/30/20 19:15> - Progress Counseled pt/family regarding: lab results, diagnosis, need for follow-up, rad results <HANH GIRON - Last Filed: 09/30/20 20:33> - Progress Progress Note: 09/30/20 16:49 In my medical opinion this patient is stable from a medical standpoint but represents a danger to herself because of her acute depression marital stress and recent miscarriage. [facility]ed [facility] [place] [facility] for placement in a psych facility (SY LUCIANO) - Departure Departure Disposition: Transfer Critical Care Time: No <SY LUCIANO - Last Filed: 09/30/20 19:15> - Departure Departure Disposition: Transfer ([facility] Psych unit) Critical Care Time: Yes Critical Care Time(excluding separately billable procedures): Critical 30-74 mins <HANH GIRON - Last Filed: 09/30/20 20:33> - Departure Clinical Impression: Depression with suicidal ideation, UTI (urinary tract infection) due to Enterococcus Condition: Stable Referrals: SELVIN LOPEZ, DO [Primary Care Provider] - Additional Instructions: CAESAR SINHA was seen on 09/30/20 n the Emergency Room. At that time you were treated for an emergent condition, during your visit Laboratory, Radiology and/or other procedures may have been ordered. It is very important that you follow-up with your Primary Care Physician SELVIN LOPEZ within the next 24-48 hours to review your Emergency Room visit and the final results of testing that was ordered. Some test results such as Urine Cultures, Blood Cultures, and other cultures if ordered will not be finalized for 24-48 hours. If you do not have a Primary Care Provider please call the medical records department at [phone] ext [phone] to obtain a copy of your results or you may sign into our patient portal to obtain these results by visiting us @ [email or web address] and completing the following steps: 1. Click on the Patient Portal link 2. Click the Patient Self Enrollment Link to complete the enrollment form and entering your 3. Once the enrollment form is completed you will receive an email with a temp orary ID and password at the email address you provided. 4. Next choose a user name and password. Your user name must be at least 4 characters long and your password must be at least 4 characters long. 5. Choose a security question from the list and provide your answer to the question. If you already have signed into the Health Portal you may access your Health Care Information 15/04 by the following steps: 1. Login to our website @ [email or web address] 2. Enter your original user name and password. FAQS The [facility] Health Portal is an online tool that contains your Lab Results, Radiology Reports, Visit History, Discharge Instructions and Health Summary Lab and Radiology Results will not be available for 72 hours on the portal. The Portal is a secure site, passwords are encryted and URLs are re-written so they cannot be copied and pasted. You and authorized family members are the only ones who can access your Portal. Also there is a timeout feature that protects your information if you leave the Portal page open. If you have technical difficulty please use the Contact Us link on the page this will allow you to submit any questions you have regarding the Portal or you may contact the Medical Record Department at [phone] ext [phone].
[2020-09-30] MEDS ORDERED: Zofran 4 MG/2 ML VIAL IV ONE (20:34)
[2020-09-30] MEDS ORDERED: Rocephin 1000 MG INJ IM ONE (20:34)
[2020-09-30] MEDS ORDERED: ROCEPHIN 1 Gm-D5w 50 ml Bag** 1 G/50 ML IVPB IV ONE (20:34)
[2020-09-30] MEDS ORDERED: Zofran 4 MG/2 ML VIAL ONE (20:36)
[2020-09-30] MEDS ORDERED: ROCEPHIN 1 Gm-D5w 50 ml Bag** 1 G/50 ML IVPB IV STA (20:38)
[2020-09-30 21:12] VITALS: BP 112/68; PULSE 74
== END 2020-09-30 21:43 | disposition short-term general hospital (02) ==
LOC: ED 12:37
DX: R45.851 Suicidal ideations (principal); F32.9 Major depressive disorder, single episode, unspecified; N39.0 Urinary tract infection, site not specified; Z79.899 Other long term (current) drug therapy; Z79.891 Long term (current) use of opiate analgesic
CPT/HCPCS: 36415; 80053; 80307; 81001; 81025; 85025; 87077; 87086; 87186; 93005; 96360; 96365; 96374; 99285; 99291; G0480; J0696; J2405